=== PATIENT | female | born 1950 | race Caucasian/White ===

== ENCOUNTER 2017-09-08 08:00 | Outpatient (CLI) | payer BC | END 2017-09-08 08:01 | disposition home or self-care (01) | LOC: BICMAMMO 08:00 | PROVIDERS: ATTEND Family Medicine | DX: Z12.31 Encounter for screening mammogram for malignant neoplasm of breast (principal) | CPT/HCPCS: 77067; G0202 ==

== ENCOUNTER 2018-09-09 09:07 | Outpatient (CLI) | payer BC | END 2018-09-09 09:08 | disposition home or self-care (01) | LOC: BICMAMMO 09:07 | PROVIDERS: ATTEND Family Medicine | DX: Z12.31 Encounter for screening mammogram for malignant neoplasm of breast (principal) | CPT/HCPCS: 77063; 77067 ==

== ENCOUNTER 2019-09-10 10:17 | Outpatient (CLI) | payer MEDICARE, BC ==
--- NOTE | 2019-09-10 11:02 | BD ---
EXAM: Bone densitometry using DEXA HISTORY: 68 yo female. Screening for postmenopausal osteoporosis FINDINGS: L1--bone mineral density 0.798 g/sq cm; T score -1.7 ; Z score 0.0 L2--bone mineral density 0.867 g/sq cm; T score -1.5 ; Z score 0.5 L3--bone mineral density 0.897 g/sq cm; T score -1.7 ; Z score 0.3 L4--bone mineral density 0.845 g/sq cm; T score -2.0 ; Z score 0.1 Total L1-L4--bone mineral density 0.850 g/sq cm; T score -1.8 ; Z score 0.2 Left femoral neck--bone mineral density0.588; T score -2.4 ; Z score -0.7 Total proximal left femur--bone mineral density 0.746; T score -1.6 ; Z score -0.2 The 10 year fracture risk for a major osteoporotic fracture is 13% and for a hip fracture is 2.7%. IMPRESSION: Osteopenia
--- NOTE | 2019-09-10 11:09 | MMO ---
Bilateral MAMMO Bilat Screen [facility]. CLINICAL HISTORY: Patient is 68 years old and is seen for screening. The patient has no family history of breast cancer. The patient has no personal history of cancer. VIEWS: The views performed were: bilateral craniocaudal with tomosynthesis and bilateral mediolateral oblique with tomosynthesis. FILMS COMPARED: The present examination has been compared to prior imaging studies performed at [facility] on 06/12/2015, 06/17/2016, 09/08/2017 and 09/09/2018. This study has been interpreted with the assistance of computer-aided detection. MAMMOGRAM FINDINGS: There are scattered fibroglandular densities. There are no suspicious masses, suspicious calcifications, or new areas of architectural distortion. IMPRESSION: THERE IS NO MAMMOGRAPHIC EVIDENCE OF MALIGNANCY. A ROUTINE FOLLOW-UP MAMMOGRAM IN 1 YEAR IS RECOMMENDED. THE RESULTS OF THIS EXAM WERE SENT TO THE PATIENT. ACR BI-RADS Category 1 - Negative MAMMOGRAPHY NOTE: 1. A negative mammogram report should not delay a biopsy if a dominant of clinically suspicious mass is present. 2. Approximately 10% to 15% of breast cancers are not detected by mammography. 3. Adenosis and dense breasts may obscure an underlying neoplasm. Reported by: BEBO ORTEGA MD Electonically Signed: [id number]
== END 2019-09-10 10:18 | disposition home or self-care (01) ==
LOC: BICMAMMO 10:17
PROVIDERS: ATTEND Family Medicine
DX: Z12.31 Encounter for screening mammogram for malignant neoplasm of breast (principal); Z13.820 Encounter for screening for osteoporosis; Z00.00 Encounter for general adult medical examination without abnormal findings; M85.80 Other specified disorders of bone density and structure, unspecified site; Z78.0 Asymptomatic menopausal state
CPT/HCPCS: 77063; 77067; 77080

== ENCOUNTER 2020-11-08 09:56 | Outpatient (CLI) | payer MEDICARE, BC ==
--- NOTE | 2020-11-08 11:15 | ULT ---
ULTRASOUND DOPPLER DUPLEX VENOUS RIGHT LOWER EXTREMITY: DATE: 11/08/2020 HISTORY: Right lower extremity acute pain in 69-year-old female TECHNIQUE: Grayscale, color-flow, and spectral analysis, of major veins of right lower extremity. FINDINGS: There is demonstration of blood flow with normal compressibility, of the right common femoral, profun da femoral, greater saphenous, femoral, popliteal, and posterior tibial, veins. At the site of palpable lump and pain at the medial calf, there is an approximately 4 x 1.5 cm superf icial area of heterogeneously slightly increased echogenicity compared to surrounding subcutaneous fat. Tiny blood vessel runs through the center of this. Otherwise no cystic component. Margins are il l-defined. No shadowing. The findings are nonspecific on ultrasound. IMPRESSION: 1. No deep venous thrombosis of right lower extremity. 2. Focal soft tissue swelling or mass at right medial calf with nonspecific appearance.
== END 2020-11-08 09:57 | disposition home or self-care (01) ==
LOC: ULT 09:56
PROVIDERS: ATTEND Family Medicine
DX: M79.604 Pain in right leg (principal)

== ENCOUNTER 2024-08-05 13:07 | Outpatient (CLI) | payer MEDICARE | END 2024-08-05 13:08 | disposition home or self-care (01) | LOC: SCSRAD 13:07 | PROVIDERS: ATTEND Family Medicine | DX: S83.8X2A Sprain of other specified parts of left knee, initial encounter (principal) ==